=== PATIENT | male | born 1965 | race Caucasian/White ===

== ENCOUNTER → 2021-05-26 16:19 | Outpatient (CLI) | payer OTHER, SELFPAY ==
--- NOTE | ~2021-05-26 | XR_ITS ---
XR knee LT 3V DATE: 05/26/2021 16:39 INDICATION: Left knee pain TECHNIQUE: 4 views including crosstable lateral COMPARISON: None FINDINGS: There is prominent periarticular spurring at the patellofemoral and lateral compartments, m oderate loss of height of the lateral compartment joint space, consistent with osteoarthritis. There is chondrocalcinosis at the medial and lateral compartment joint spaces. No fracture or dislocation or any significant joint effusion is evident. No periosteal reaction or bone destruction. There is diffuse osteopenia. IMPRESSION: Osteoarthritis involving particularly the patellofemoral and lateral compartments Chondrocalcinosis Osteopenia Reviewed, dictated and finalized at location B. DS CONTROL TECHNICIAN IMPRESSION: Osteoarthritis involving particularly the patellofemoral and latera l compartments Chondrocalcinosis Osteopenia
== END ==
PROVIDERS: PCP Family Medicine; Visit Provider Family Medicine
DX: M17.12 Unilateral primary osteoarthritis, left knee (principal); M11.262 Other chondrocalcinosis, left knee
CPT/HCPCS: 73562

== ENCOUNTER → 2021-11-14 15:09 | Outpatient (CLI) | payer OTHER, SELFPAY ==
--- NOTE | ~2021-11-14 | XR_ITS ---
XR knee RT min 4V 11/14/2021 15:26 Indication: Right knee pain Procedure: 4 views of the right knee Comparison: No prior studies for comparison. Findings: There is tricompartment osteoarthritis. There is chondrocalcinosis. No significant joint ef fusion. No acute fracture or traumatic malalignment. No significant soft tissue abnormality. Impression: 1: Moderate tricompartment osteoarthritis of the right knee. Reviewed, dictated and finalized at location B. Impression: 1: Moderate tricompartment osteoarthritis of the right knee.
== END ==
PROVIDERS: PCP Family Medicine; Visit Provider Nurse Practitioner Family
DX: M25.561 Pain in right knee (principal); M17.11 Unilateral primary osteoarthritis, right knee
CPT/HCPCS: 73564

== ENCOUNTER 2022-01-06 00:12 | Day surgery (SDC) | payer OTHER, SELFPAY ==
[2021-12-22 13:27] VITALS: BMI 33.8
--- NOTE | 2022-01-05 13:39 | SUR.PREOP ---
spoke with patient at [id number] regarding Magnesium citrate recall. Instructed pt not to take magnesium citrate. Patient voiced understanding.
[2022-01-06 07:28] VITALS: BP 113/90; PULSE 82; RESP 82; TEMP 36.2; O2SAT 97; BMI 33.3
[2022-01-06] MEDS: LACTATED RINGERS 1,000 ML 150 ML IV CONT (07:46)
[2022-01-06 07:47] LABS: Glucose Point of Care 157 mg/dl (65-105)
--- NOTE | 2022-01-06 08:35 | P.PNAN_ITS ---
Anes - Initial Pre Proc Eval Procedure: Operation Date: 01/06/22 09:00 Proposed Procedures p Screening Colonoscopy - Rohit Schmidt MD Date/Time: 01/06/22 08:35 Surgeon: Rohit Schmidt MD Pre Op Diagnosis: neoplasm screening Patient Data Age: 56 Gender: M Height: 1.7 m Weight: 96.7 kg Last Vital Signs Temp 97.1 F L 01/06/22 07:28 Pulse 82 01/06/22 07:28 Resp 82 H 01/06/22 07:28 BP 113/90 01/06/22 07:28 Pulse Ox 97 01/06/22 07:28 O2 Del Method Room Air 01/06/22 07:28 Allergies Allergy/AdvReac Type Severity Reaction Status Date / Time No Known Allergies Allergy Verified 01/06/22 07:36 Home Medications Medication Instructions Recorded Confirmed Type ezetimibe 10 mg tablet 10 mg PO DAILY 05/09/19 01/06/22 History flecainide 100 mg tablet 100 mg PO Q12H 05/09/19 01/06/22 History icosapent ethyl 1 gram capsule 2 gm PO BID 05/09/19 01/06/22 History (Vascepa) lisinopril 10 mg tablet 10 mg PO DAILY 05/09/19 01/06/22 History magnesium oxide 400 mg PO BID #180 tabs 08/15/20 01/06/22 Rx fluocinonide 0.05 % topical See Rx Instructions topical BID 11/26/20 01/06/22 Rx ointment PRN rash #30 grams rosuvastatin 20 mg tablet 20 mg PO DAILY #90 tabs 03/17/21 01/06/22 Rx dupilumab 300 mg/2 mL subcutaneous 300 mg subcut . q.2 weeks 05/26/21 01/06/22 History pen injector metformin 500 mg tablet,extended 1,000 mg PO BID #360 tabs 07/31/21 01/06/22 Rx release 24hr dulaglutide 3 mg/0.5 mL 3 mg (0.5 mL) subcut WEEKLY #6 mL 10/26/21 01/06/22 Rx subcutaneous pen injector (Trulicity) meloxicam 15 mg tablet 15 mg PO DAILY PRN pain #90 tabs 11/05/21 01/06/22 Rx Laboratory Tests 01/06/22 07:41 POC Capillary Glucose 157 mg/dl H mg/dl (65-105) Patient hx anesthesia problems: none Family hx anesthesia problems: none Results Review: All pre-operative results and documents have been reviewed as part of the pre- operative evaluation. [facility] Past Medical History Medical History Biceps tendon rupture Left upper arm BMI 34.0-34.9,adult BMI 35.0-35.9,adult BMI 36.0-36.9,adult Body mass index (bmi) 37.0-37.9, adult (03/23/19) Body mass index (BMI) of 39.0 to 39.9 in adult Chronic pain of left knee (~04/26/21) Chronic pain of right knee Cough (06/16/21) COVID-19 (~04/19/20) Diabetes Hemoglobin A1C greater than 9%, indicating poor diabetic control 07/08/19 A1c was 9.2 Myalgia Obesity (BMI 30.0-34.9) Plantar wart of left foot Right knee pain Thrush, oral Surgical History Surgical History H/O Achilles tendon repair H/O knee surgery 1986 History of nasal surgery S/P hernia surgery Family History Family History Mother Patient's mother is , Onset Age: 56 Family history of malignant neoplasm Father Patient's father is , Onset Age: 72 Family history of cardiovascular disease Hypertension Grandparent Family history of c
--- NOTE | 2022-01-06 08:35 | PM.HPGS ---
History of Present Illness History of Present Illness Consent: Risks, benefits, and alternatives have been discussed and questions answered. Patient agrees to proceed with procedure. Chief complaint: neoplasm screening Narrative: Giuseppe Amaya is a 56 year old male here for screening colonoscopy, last one 10 years Review of Systems Constitutional: Constitutional: Denies headache(s) and Denies weakness Eyes: Eyes: Denies blurry vision ENT: Reports Normal hearing present, Denies headache(s) and Denies neck pain Cardiovascular: Cardiovascular: Denies chest pain and Denies dyspnea Respiratory: Respiratory: Denies dyspnea Gastrointestinal: Gastrointestinal: Reports no additional gastrointestinal complaints Genitourinary: Genitourinary: Denies dysuria Musculoskeletal: Musculoskeletal: Denies neck pain Integumentary/Breasts: Skin/Breast: Denies dry skin Neurologic: Reports Normal hearing present, Denies headache(s) and Denies weakness Psychiatric: Psychiatric: Denies anxiety Endocrine: Endocrine: Denies change in body appearance Hematologic/Lymphatic: Hematologic/Lymphatic: Denies easy bleeding Allergic/Immunologic: Allergic/Immunologic: Denies urticaria PMFSH Past Medical History Medical History Biceps tendon rupture Left upper arm BMI 34.0-34.9,adult BMI 35.0-35.9,adult BMI 36.0-36.9,adult Body mass index (bmi) 37.0-37.9, adult (03/23/19) Body mass index (BMI) of 39.0 to 39.9 in adult Chronic pain of left knee (~04/26/21) Chronic pain of right knee Cough (06/16/21) COVID-19 (~04/19/20) Diabetes Hemoglobin A1C greater than 9%, indicating poor diabetic control 07/08/19 A1c was 9.2 Myalgia Obesity (BMI 30.0-34.9) Plantar wart of left foot Right knee pain Thrush, oral Surgical History Surgical History H/O Achilles tendon repair H/O knee surgery 1986 History of nasal surgery S/P hernia surgery Family History Family History Mother Patient's mother is , Onset Age: 56 Family history of malignant neoplasm Father Patient's father is , Onset Age: 72 Family history of cardiovascular disease Hypertension Grandparent Family history of cardiovascular disease Hypertension Social History Social History Smoking status: Never smoker Tobacco type: smokeless tobacco Smoking end date: 06/07/14 Alcohol intake: current Drinks per week: 2 Alcohol use details: Beer Substance use: never Living arrangements: with family Additional occupation/education comments: teacher Gender identity (if verbalized by the patient): Male Spiritual care concerns: No Meds Home Medications and Allergies Home Medications Medication Instructions Recorded Confirmed Type ezetimibe 10 mg tablet 10 mg PO DAILY 05/09/19 01/06/22 History flecainide 100 mg tablet 100 mg PO Q12H 05/09/19 01/06/22 History icosapent ethyl 1 gram capsule 2 gm PO BID 05/09/19 01/06/22 History (Vascepa) lisinopril 10 mg tablet 10 mg PO DAILY 05/09/19 01/06/22 History magnesium oxide 400 mg PO BID #180 tabs 08/15/20 01/06/22 Rx fluocinonide 0.05 % topical See Rx Instructions topical BID 11/26/20 01/06/22 Rx ointment PRN rash #30 grams rosuvastatin 20 mg tablet 20 mg PO DAILY #90 tabs 03/17/21 01/06/22 Rx dupilumab 300 mg/2 mL subcutaneous 300 mg subcut . q.2 weeks 05/26/21 01/06/22 History pen injector metformin 500 mg tablet,extended 1,000 mg PO BID #360 tabs 07/31/21 01/06/22 Rx release 24hr dulaglutide 3 mg/0.5 mL 3 mg (0.5 mL) subcut WEEKLY #6 mL 10/26/21 01/06/22 Rx subcutaneous pen injector (Trulicity) meloxicam 15 mg tablet 15 mg PO DAILY PRN pain #90 tabs 11/05/21 01/06/22 Rx Allergies Allergy/AdvReac Type Severity Reaction Status Date / Time
--- NOTE | 2022-01-06 08:44 | ECG_ITS ---
Measurements Intervals [place] Rate: 83 P: 42 CA: 164 QRS: -27 QRSD: 117 T: -13 QT: 380 QTc: 449 Interpretive Statements SINUS RHYTHM WITH FREQUENT VENTRICULAR PREMATURE COMPLEXES LEFTWARD AXIS INCOMPLETE RIGHT BUNDLE BRANCH BLOCK Electronically Signed On 01-06-2022 11:42:35 CDT by Mahamed Minor M.D.
[2022-01-06 09:37] VITALS: BP 107/67; PULSE 75; RESP 25; O2SAT 96
[2022-01-06 09:47] VITALS: BP 105/65; PULSE 85; RESP 23; O2SAT 99
[2022-01-06 09:57] VITALS: BP 117/65; PULSE 80; RESP 18; O2SAT 99
== END 2022-01-06 10:01 | disposition home or self-care (01) ==
PROVIDERS: PCP Family Medicine; Visit Provider Internal Medicine Gastroenterology
PROC: 0DJD8ZZ Inspection of Lower Intestinal Tract, Via Natural or Artificial Opening Endoscopic (ICD-10-PCS; CPT 45378; principal; 2022-01-06 09:00)
DX: Z12.11 Encounter for screening for malignant neoplasm of colon (principal); I49.3 Ventricular premature depolarization; I45.10 Unspecified right bundle-branch block; E11.9 Type 2 diabetes mellitus without complications; Z86.16 Personal history of COVID-19; M79.10 Myalgia, unspecified site; Z79.84 Long term (current) use of oral hypoglycemic drugs; E66.9 Obesity, unspecified; Z68.33 Body mass index [BMI] 33.0-33.9, adult
CPT/HCPCS: 45378; 82948; 93005; J2704; J7120

== ENCOUNTER 2022-01-08 10:00 | Outpatient (RCR) | payer OTHER, SELFPAY ==
--- NOTE | 2021-12-15 14:50 | PTOPEVAL ---
PHYSICAL THERAPY EVALUATION AND PLAN OF CARE Thank you for referring Giuseppe Amaya to [facility].? The patient is scheduled to be seen for therapy?to follow up in 4 weeks. Please review, sign, date and return this plan of care AALIYAH. I agree with and certify that the following plan of care is medically necessary. Referring Physician Date Attending Provider: Anthony Prasad APN Diagnosis right knee pain Onset 08/2021 Subjective Information Reports that he sad down and Query Text:As Reported By Patient/ felt a pop and was not able to Family get up for about 25 minutes. 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 Thinks that increasing movement is causing more pain. States that anything at an angle will increase pain at medial side of knee. Reports about 10 episodes of 5-6/10 pain a day that will subside when the activity stops. Right Knee(s) Reported Pain Level 0 Pain Description Stabbing Greatest Pain Intensity 6 Pain Score Pain Score 0: Self Report Interventions Used Interventions Used By Clinicians Exercise,Manual Therapy Techniques Pain Relief Interventions Used By Inactivity/Rest Patient Lower Extremity Range of Motion Knee Range of Motion Right Knee Flexion Range of Motion - Active 130 Knee Extension Range of Motion - Active 0 Query Text: Lower Extremity Muscle Strength Testing Hip Strength Right Hip Flexion Strength 5 Normal Hip Extension Strength 4+ Good + Hip Abduction Strength 4+ Good + Knee Strength Right Knee Flexion Strength 5 Normal Knee Extension Strength 5 Normal Knee Strength Comments quad set: full quad set performed; poor force production able to perfrom full single leg sit to stand with mild effort Muscle Length Testing Muscle Length Testing Piriformis w/Hip Flexion >90 Degrees (R) Moderate Tightness,(L) Moderate Tightness Special Tests-Lower Extremity Knee Special Tests Rosina's Negative Right Anterior Drawer Negative Right Pivot-Shift Negative Right Valgus Stress Test Knee at 0 Degrees
--- NOTE | 2022-01-08 10:23 | PTOPEVAL ---
PHYSICAL THERAPY DISCHARGE NOTE Thank you for referring Giuseppe Amaya to [facility].?Please review, sign, date and return this plan of care AALIYAH. I agree with and certify that the following plan of care is medically necessary. Referring Physician Date Attending Provider: Anthony Prasad APN Diagnosis right knee pain Onset 08/2021 Subjective Information Reports that he has been doing Query Text:As Reported By Patient/ really well. States that he Family has gone a whole week without pain. His disabled daughter did fall on it and affected it but it is doing ok. States that he thinks baseball season is going to do ok. Lower Extremity Range of Motion Knee Range of Motion Right Knee Flexion Range of Motion - Active 130 Knee Extension Range of Motion - Active 0 Query Text: Lower Extremity Muscle Strength Testing Hip Strength Right Hip Flexion Strength 5 Normal Hip Extension Strength 5 Normal Hip Abduction Strength 5 Normal Knee Strength Right Knee Flexion Strength 5 Normal Knee Extension Strength 5 Normal Muscle Length Testing Muscle Length Testing Piriformis w/Hip Flexion >90 Degrees (R) Mild Tightness,(L) Mild Tightness Special Tests-Lower Extremity Knee Special Tests Rosina's Negative Right Anterior Drawer Negative Right Pivot-Shift Negative Right Valgus Stress Test Knee at 0 Degrees Negative Right Valgus Stress Test Knee at 30 Degrees Negative Right Varus Stress Test Knee at 0 Degrees Negative Right Varus Stress Test Knee at 30 Degrees Negative Right Susy's Negative Right Thessaly's Test Negative Right Gait Pattern No Deviations/Normal PT Clinical Summary Giuseppe is a 56 yo male with right knee pain. He reports significantly improved symptoms with only occasional episodes of pain. He presents with normal strength and ROM of the right LE, has normal gait pattern. D/C from PT att his time.
== END 2022-01-08 16:07 | disposition home or self-care (01) ==
LOC: ANHPT 10:00
PROVIDERS: PCP Family Medicine; Visit Provider Nurse Practitioner
DX: M25.561 Pain in right knee (principal)
CPT/HCPCS: 97110; 97161

== ENCOUNTER 2022-04-09 09:36 | Emergency (ER) | payer OTHER, SELFPAY ==
[2022-04-09 09:53] VITALS: BP 124/81; PULSE 92; RESP 16; TEMP 36.3; O2SAT 97
--- NOTE | 2022-04-09 10:18 | ED.URI ---
HPI - URI/Sore Throat General Chief Complaint: Upper Respiratory Infection Stated Complaint: sore throat, chills, cough Time Seen by Provider: 04/09/22 10:12 Source: patient Mode of arrival: ambulatory Limitations: no limitations History of Present Illness HPI Narrative: they complaining of a one-week history of sore patient question with occasional shortness of breath. Reports his symptoms had been improving, but worsened again a few days ago. Denies fever. No history of asthma or COPD. He is a nonsmoker. He has not yet received his flu vaccine this season. He has been taking Tylenol, mucus Relief, and occasional Tessalon Perles with some relief. History of diabetes for which he takes Trulicity and metformin. He does not check his blood sugars Related Data Home Medications Medication Instructions Recorded Confirmed ezetimibe 10 mg tablet 10 mg PO DAILY 05/09/19 04/09/22 flecainide 100 mg tablet 100 mg PO Q12H 05/09/19 04/09/22 icosapent ethyl 1 gram capsule 2 gm PO BID 05/09/19 04/09/22 (Vascepa) lisinopril 10 mg tablet 10 mg PO DAILY 05/09/19 04/09/22 dupilumab 300 mg/2 mL subcutaneous 300 mg subcut . q.2 weeks 05/26/21 04/09/22 pen injector metformin 500 mg tablet,extended mg PO 04/09/22 release 24 hr Allergies Allergy/AdvReac Type Severity Reaction Status Date / Time No Known Allergies Allergy Verified 04/09/22 09:49 Review of Systems Review of Systems: CONSTITUTIONAL: Denies body aches, fever, or sweats.+ chills EYES: Denies visual changes, redness, or discharge. ENT: Denies rhinorrhea, or otalgia.+ sore throat, congestion CARDIOVASCULAR: Denies chest pain, palpitations, or edema. RESPIRATORY: + cough, shortness of breath GASTROINTESTINAL: Denies abdominal pain, nausea, vomiting, or diarrhea. GENITOURINARY: Denies dysuria or hematuria. SKIN: Denies rash, itching, or wounds. MUSCULOSKELETAL: Denies back pain, joint pain, or myalgia. NEUROLOGIC: Denies headache, numbness, tingling, or weakness. PSYCH: Denies depression or anxiety. [facility] Past Medical History Medical History Acute non-recurrent maxillary sinusitis Biceps tendon rupture Left upper arm BMI 34.0-34.9,adult BMI 35.0-35.9,adult BMI 36.0-36.9,adult Body mass index (bmi) 37.0-37.9, adult (03/23/19) Body mass index (BMI) of 39.0 to 39.9 in adult Chronic pain of left knee (~04/26/21) Chronic pain of right knee Cough (06/16/21) COVID-19 (~04/19/20) Diabetes Hemoglobin A1C greater than 9%, indicating poor diabetic control 07/08/19 A1c was 9.2 Myalgia Obesity (BMI 30.0-34.9) Plantar wart of left foot Right knee pain Thrush, oral Surgical History Surgical History H/O Achilles tendon repair H/O knee surgery 1986 History of nasal surgery S/P hernia surgery Family History Family History Mother Patient's mother is , Onset Age: 56 Family history of malignant neoplasm Father Patient's father is , Onset Age: 72 Family history of cardiovascular disease Hypertension Grandparent Family history of cardiovascular disease Hypertension Social History Social History Smoking status: Never smoker Tobacco type: smokeless tobacco Smoking end date: 06/07/14 Alcohol intake: current Drinks per week: 2 Alcohol use details: Beer Substance use: never Additional occupation/education comments: teacher Gender identity (if verbalized by the patient): Male Spiritual care concerns: No Comments At time of signature, I have reviewed and agree with nursing past medical, surgical, social and family history unless otherwise noted. Please see nursing chart for further information. There is no relevant family history pertinent to the presenting complaint Exam
== END 2022-04-09 10:31 | disposition home or self-care (01) ==
PROVIDERS: Emergency Provider Nurse Practitioner; PCP Family Medicine
DX: J01.90 Acute sinusitis, unspecified (principal); Z87.891 Personal history of nicotine dependence; E11.9 Type 2 diabetes mellitus without complications; Z86.16 Personal history of COVID-19; E66.9 Obesity, unspecified; Z68.34 Body mass index [BMI] 34.0-34.9, adult
CPT/HCPCS: 87081; 87804; 87880; 99213; G0463